=== PATIENT | female | born 1955 | race Caucasian/White ===

== ENCOUNTER 2016-07-20 10:05 | Emergency (ER) | payer OTHER ==
[~2016-07-20] VITALS: Ht 170.2 cm; Wt 167.9 kg
[~2016-07-20 10:05] MED LIST: AMLODIPINE BESYL5 MG PO; GLIMEPIRIDE4 MG PO; LEVEMIR FL100 UNIT/1 SC; LEVEMIR100 UNIT/2 SC; LISINOPRIL20 MG PO; LO-DOSE ASPIRIN81 M1 PO; METFORMIN HCL1000 MG PO; NOVOLOG 10100 UNITS/ SC; VERAPAMIL HCL120 MG PO; VITAMIN D1000 UNIT PO
[2016-07-20 11:11] LABS: HEMATOCRIT 44.4 % (36.0-46.0); MCHC 32.7 G/DL (30.0-36.0); MCV 88.8 FL (83-99); MEAN PLAT.VOLUME 10.9 uM^3 (9.5-12.4); PLATELET COUNT 168 K/uL (156-360); RBC DIS.WIDTH-CV 14.1 % (11.8-14.6); RBC DIS.WIDTH-SD 44.6 % (39-53); WHITE BLOOD COUNT 7.7 K/uL (4.1-10.2)
[2016-07-20 11:24] LABS: CHLORIDE 104 mEq/L (99-109); POTASSIUM 4.1 mEq/L (3.7-5.4); SODIUM 139 mEq/L (136-147)
[2016-07-20 11:26] LABS: GLUCOSE 256 mg/dL (70-99)
[2016-07-20 11:27] LABS: ANION GAP 10 MEQ/L (2-14)
[2016-07-20 11:28] LABS: TOTAL BILIRUBIN 0.8 mg/dL (0.0-1.0)
[2016-07-20 11:30] LABS: ALKALINE PHOSPHATASE 172 IU/L (3-129); GFR ESTIMATE (CALCULATED) > 59 mL/min/
[2016-07-20 11:31] LABS: UREA NITROGEN (BUN) 11 mg/dL (9-23)
[2016-07-20 13:06] LABS: ADD MIUA? YES; BILIRUBIN NEGATIVE; BLOOD TRACE; COLOR YELLOW ((YELLOW)); GLUCOSE (STRIP) 100; KETONES TRACE; LEUKOCYTES MODERATE; NITRITE POSITIVE; PH, URINE 5.5 (5-8); PROTEIN (STRIP) TRACE; UROBILINOGEN 0.2 MG/DL (0.2-1.0)
[2016-07-20 13:37] LABS: BACTERIA 2+; CASTS NONE SEEN /LPF; CRYSTALS NONE SEEN; EPITHELIAL CELLS 1+; MUCUS 1+; RED BLOOD CELLS 0-5 /HPF (0-5); UCUL ADDED? YES; WHITE BLOOD CELLS 15-20 /HPF (0-5)
[2016-07-20] MEDS ORDERED: ZOFRAN ODT4 MG PO (13:55)
[2016-07-20] MEDS ORDERED: IMODIUM A-D2 M2 PO (13:56)
[2016-07-20] MEDS ORDERED: FLAGYL500 MG PO (13:58)
[2016-07-20] MEDS ORDERED: CIPROFLOXACIN500 M1 PO (13:58)
[2016-07-20 14:19] VITALS: BP 168/70
== END 2016-07-20 14:43 | disposition home or self-care (01) ==
LOC: EME 10:05
DX: K52.9 Noninfective gastroenteritis and colitis, unspecified (principal); E86.0 Dehydration; E11.9 Type 2 diabetes mellitus without complications; I10 Essential (primary) hypertension; Z79.84 Long term (current) use of oral hypoglycemic drugs; Z79.4 Long term (current) use of insulin
CPT/HCPCS: 80053; 81003; 85027; 87077; 87086; 87186; 87493; 99281; 99284; J7030

== ENCOUNTER 2017-01-03 11:22 | Emergency (ER) | payer OTHER ==
[~2017-01-03] VITALS: Ht 170.2 cm; Wt 168.1 kg
[~2017-01-03 11:22] MED LIST changes: +CIPROFLOXACIN500 M1 PO; +FLAGYL500 MG PO; +IMODIUM A-D2 M2 PO; +ZOFRAN ODT4 MG PO
[2017-01-03] MEDS ORDERED: LEVEMIR100 UNIT/2 SC (13:12)
[2017-01-03] MEDS ORDERED: MOBIC15 MG PO (13:12)
[2017-01-03] MEDS ORDERED: LASIX40 MG PO (13:13)
[2017-01-03] MEDS ORDERED: AMARYL4 MG PO (13:13)
[2017-01-03 14:02] LABS: EOSINOPHIL (%) 0.2 % (0-5); HEMATOCRIT 48.6 % (36.0-46.0); IMMATURE GRANULOCYTE (%) 0.3 % (0.0-0.7); INSTRUMENT ABS NEUTROPHIL CT 6.7 K/uL; LYMPHOCYTE COUNT 1.3 K/uL (1.0-2.8); MCH 29.2 PG (29.0-34.0); MCHC 32.1 G/DL (30.0-36.0); MEAN PLAT.VOLUME 10.7 uM^3 (9.5-12.4); MONOCYTE COUNT 0.6 K/uL (0-0.8); NEUTROPHIL (%) 77.8 % (45-76); NEUTROPHIL COUNT 6.7 K/uL (1.8-6.4); PLATELET COUNT 172 K/uL (156-360); RBC DIS.WIDTH-CV 13.4 % (11.8-14.6); RBC DIS.WIDTH-SD 45.4 % (39-53); RED BLOOD COUNT 5.34 M/uL (3.80-5.20); WHITE BLOOD COUNT 8.6 K/uL (4.1-10.2)
[2017-01-03 14:10] LABS: CHLORIDE 99 mEq/L (99-109); POTASSIUM 3.9 mEq/L (3.7-5.4); SODIUM 138 mEq/L (136-147)
[2017-01-03 14:12] LABS: GLUCOSE 118 mg/dL (70-99)
[2017-01-03 14:13] LABS: ANION GAP 12 MEQ/L (2-14)
[2017-01-03 14:15] LABS: GFR ESTIMATE (CALCULATED) > 59 mL/min/
[2017-01-03 14:16] LABS: UREA NITROGEN (BUN) 14 mg/dL (9-23)
[2017-01-03] MEDS ORDERED: CLEOCIN300 MG PO (16:14)
[2017-01-03 16:20] VITALS: BP 157/79
== END 2017-01-03 16:22 | disposition home or self-care (01) ==
LOC: EME 11:22
PROVIDERS: Emergency Medicine
DX: L03.115 Cellulitis of right lower limb (principal); L97.519 Non-pressure chronic ulcer of other part of right foot with unspecified severity; E11.9 Type 2 diabetes mellitus without complications; Z79.4 Long term (current) use of insulin; I10 Essential (primary) hypertension
CPT/HCPCS: 73630; 80048; 85025; 99281; 99284

== ENCOUNTER 2017-01-05 12:14 | Inpatient (IN) | payer OTHER ==
[~2017-01-05] VITALS: Ht 170.2 cm; Wt 169.5 kg
[~2017-01-05 12:14] MED LIST changes: +AMARYL4 MG PO; +CLEOCIN300 MG PO; +LASIX40 MG PO; +MOBIC15 MG PO
[2017-01-05 13:09] LABS: MCH 28.9 PG (29.0-34.0); MCHC 31.8 G/DL (30.0-36.0); MCV 91.1 FL (83-99); MEAN PLAT.VOLUME 10.9 uM^3 (9.5-12.4); PLATELET COUNT 175 K/uL (156-360); RBC DIS.WIDTH-CV 13.4 % (11.8-14.6); RBC DIS.WIDTH-SD 45.1 % (39-53); RED BLOOD COUNT 4.94 M/uL (3.80-5.20); WHITE BLOOD COUNT 12.5 K/uL (4.1-10.2)
[2017-01-05 13:24] LABS: CHLORIDE 98 mEq/L (99-109); POTASSIUM 4.1 mEq/L (3.7-5.4); SODIUM 135 mEq/L (136-147)
[2017-01-05 13:27] LABS: ANION GAP 11 MEQ/L (2-14)
[2017-01-05 13:30] LABS: GFR ESTIMATE (CALCULATED) > 59 mL/min/; GLUCOSE 204 mg/dL (70-99); UREA NITROGEN (BUN) 17 mg/dL (9-23)
[2017-01-05 15:53] VITALS: BP 175/74
[2017-01-05 16:57] LABS: POINT-OF-CARE METER ID UU14149397
[2017-01-05 20:07] LABS: POINT-OF-CARE METER ID UU14188577; POINT-OF-CARE USER ID 609231305
[2017-01-05 23:48] VITALS: BP 172/80
[2017-01-06] VITALS: BP 155/82
[2017-01-06 00:18] LABS: POINT-OF-CARE METER ID UU14149397
[2017-01-06 00:22] LABS: ADD MIUA? YES; BILIRUBIN NEGATIVE; BLOOD LARGE; COLOR YELLOW ((YELLOW)); GLUCOSE (STRIP) >=500; KETONES NEGATIVE; LEUKOCYTES MODERATE; NITRITE NEGATIVE; PROTEIN (STRIP) 30; SPECIFIC GRAVITY 1.021 (1.000-1.030); UROBILINOGEN 0.2 MG/DL (0.2-1.0)
[2017-01-06 00:54] LABS: BACTERIA NONE SEEN /HPF; BUDDING YEAST 2+; EPITHELIAL CELLS RARE /HPF; MUCUS TRACE /LPF; RED BLOOD CELLS TNTC /HPF (0-5); UCUL ADDED? YES; WHITE BLOOD CELLS TNTC /HPF (0-5)
[2017-01-06 06:48] LABS: HEMATOCRIT 42.6 % (36.0-46.0); MCH 29.8 PG (29.0-34.0); MCHC 31.9 G/DL (30.0-36.0); MCV 93.2 FL (83-99); MEAN PLAT.VOLUME 11.1 uM^3 (9.5-12.4); PLATELET COUNT 195 K/uL (156-360); RBC DIS.WIDTH-CV 13.5 % (11.8-14.6); RBC DIS.WIDTH-SD 45.4 % (39-53); RED BLOOD COUNT 4.57 M/uL (3.80-5.20); WHITE BLOOD COUNT 8.8 K/uL (4.1-10.2)
[2017-01-06 08:21] LABS: ANION GAP 10 MEQ/L (2-14); CHLORIDE 100 MEQ/L (99-109); GFR ESTIMATE (CALCULATED) > 59 mL/min/; GLUCOSE 204 mg/dL (70-99); SAMPLE HEMOLYSIS CHECK 0; SAMPLE ICTERIC CHECK 0; SAMPLE LIPEMIA CHECK 0; SODIUM 138 MEQ/L (136-147); UREA NITROGEN (BUN) 20 mg/dL (9-23)
[2017-01-06 08:25] VITALS: BP 138/68
[2017-01-06 11:31] LABS: POINT-OF-CARE METER ID UU14149397
[2017-01-06 14:46] LABS: POINT-OF-CARE METER ID UU14188577
[2017-01-06 15:47] VITALS: BP 130/70
[2017-01-06 18:25] LABS: POINT-OF-CARE METER ID UU14188577
[2017-01-07 01:09] VITALS: BP 132/56
[2017-01-07 01:57] LABS: POINT-OF-CARE METER ID UU14188577; POINT-OF-CARE USER ID AHSUCEG
[2017-01-07 03:52] VITALS: BP 136/60
[2017-01-07 07:00] LABS: POINT-OF-CARE METER ID UU14188577; POINT-OF-CARE USER ID AHSUCEG
[2017-01-07 07:21] VITALS: BP 152/66
[2017-01-07 11:15] LABS: POINT-OF-CARE METER ID UU14149397
[2017-01-07 14:41] LABS: POINT-OF-CARE METER ID UU14149397
[2017-01-07 15:33] VITALS: BP 151/67
[2017-01-07 21:52] LABS: POINT-OF-CARE METER ID UU14188577
[2017-01-07 23:43] VITALS: BP 122/56
[2017-01-08 06:28] LABS: HEMATOCRIT 41.3 % (36.0-46.0); MCH 29.8 PG (29.0-34.0); MCV 93.2 FL (83-99); MEAN PLAT.VOLUME 10.8 uM^3 (9.5-12.4); PLATELET COUNT 203 K/uL (156-360); RBC DIS.WIDTH-CV 13.2 % (11.8-14.6); RBC DIS.WIDTH-SD 45.2 % (39-53); RED BLOOD COUNT 4.43 M/uL (3.80-5.20); WHITE BLOOD COUNT 6.5 K/uL (4.1-10.2)
[2017-01-08 06:39] LABS: POINT-OF-CARE METER ID UU14188577
[2017-01-08 07:00] LABS: ANION GAP 6 MEQ/L (2-14); CHLORIDE 103 MEQ/L (99-109); GFR ESTIMATE (CALCULATED) > 59 mL/min/; GLUCOSE 179 mg/dL (70-99); SAMPLE HEMOLYSIS CHECK 0; SAMPLE ICTERIC CHECK 0; SAMPLE LIPEMIA CHECK 0; SODIUM 137 MEQ/L (136-147); UREA NITROGEN (BUN) 14 mg/dL (9-23)
[2017-01-08 07:08] LABS: POTASSIUM 4.9 MEQ/L (3.7-5.4)
[2017-01-08 08:01] VITALS: BP 151/68
[2017-01-08 11:33] LABS: POINT-OF-CARE METER ID UU14149397
[2017-01-08] MEDS ORDERED: NORVASC5 MG PO (12:03)
[2017-01-08] MEDS ORDERED: NOVOLOG 10100 UNITS/ SC ×2 (12:04→12:05)
[2017-01-08 12:16] VITALS: BP 138/65
[2017-01-08 16:10] VITALS: BP 157/69
[2017-01-08 16:39] LABS: POINT-OF-CARE METER ID UU14149397
[2017-01-08 21:46] LABS: POINT-OF-CARE METER ID UU14149397
[2017-01-09 00:02] VITALS: BP 133/63
[2017-01-09 07:06] LABS: POINT-OF-CARE METER ID UU14149397
[2017-01-09 07:37] VITALS: BP 166/75
[2017-01-09 12:02] LABS: POINT-OF-CARE METER ID UU14149397
[2017-01-09 15:13] VITALS: BP 155/70
[2017-01-09 21:47] LABS: POINT-OF-CARE METER ID UU14149397
[2017-01-09 23:25] VITALS: BP 142/65
[2017-01-10 06:34] LABS: HEMATOCRIT 39.9 % (36.0-46.0); MCH 30.6 PG (29.0-34.0); MCHC 33.3 G/DL (30.0-36.0); MCV 91.9 FL (83-99); MEAN PLAT.VOLUME 10.8 uM^3 (9.5-12.4); PLATELET COUNT 184 K/uL (156-360); RBC DIS.WIDTH-CV 12.9 % (11.8-14.6); RBC DIS.WIDTH-SD 43.6 % (39-53); RED BLOOD COUNT 4.34 M/uL (3.80-5.20); WHITE BLOOD COUNT 5.9 K/uL (4.1-10.2)
[2017-01-10 06:54] LABS: ANION GAP 5 MEQ/L (2-14); CHLORIDE 101 MEQ/L (99-109); GFR ESTIMATE (CALCULATED) > 59 mL/min/; GLUCOSE 159 mg/dL (70-99); POTASSIUM 4.6 MEQ/L (3.7-5.4); SAMPLE HEMOLYSIS CHECK 0; SAMPLE ICTERIC CHECK 0; SAMPLE LIPEMIA CHECK 0; SODIUM 141 MEQ/L (136-147); UREA NITROGEN (BUN) 7 mg/dL (9-23)
[2017-01-10 11:49] LABS: POINT-OF-CARE METER ID UU14149397
[2017-01-10 16:51] LABS: POINT-OF-CARE METER ID UU14188577
[2017-01-10 17:46] VITALS: BP 175/76
[2017-01-10 21:40] LABS: POINT-OF-CARE METER ID UU14149397
[2017-01-10 22:33] VITALS: BP 172/78
[2017-01-11 00:40] VITALS: BP 142/65
[2017-01-11 06:35] LABS: POINT-OF-CARE METER ID UU14188577
[2017-01-11 07:32] LABS: ANION GAP 6 MEQ/L (2-14); CHLORIDE 100 MEQ/L (99-109); GFR ESTIMATE (CALCULATED) > 59 mL/min/; GLUCOSE 147 mg/dL (70-99); POTASSIUM 3.9 MEQ/L (3.7-5.4); SAMPLE HEMOLYSIS CHECK 0; SAMPLE ICTERIC CHECK 0; SAMPLE LIPEMIA CHECK 0; SODIUM 140 MEQ/L (136-147); UREA NITROGEN (BUN) 8 mg/dL (9-23)
[2017-01-11 07:35] VITALS: BP 177/78
[2017-01-11 11:22] VITALS: BP 118/59
[2017-01-11 11:58] LABS: POINT-OF-CARE METER ID UU14149397
[2017-01-11 13:48] LABS: POINT-OF-CARE METER ID UU14149397
[2017-01-11 16:22] LABS: POINT-OF-CARE METER ID UU13113675
[2017-01-11 17:15] VITALS: BP 139/63
[2017-01-11 19:40] VITALS: BP 148/67
[2017-01-11 22:52] VITALS: BP 122/57
[2017-01-12 04:47] VITALS: BP 131/62
[2017-01-12 06:47] LABS: POINT-OF-CARE METER ID UU14188577
[2017-01-12 06:53] LABS: HEMATOCRIT 43.5 % (36.0-46.0); MCH 29.5 PG (29.0-34.0); MCHC 31.5 G/DL (30.0-36.0); MCV 93.5 FL (83-99); MEAN PLAT.VOLUME 10.8 uM^3 (9.5-12.4); PLATELET COUNT 205 K/uL (156-360); RBC DIS.WIDTH-CV 13.6 % (11.8-14.6); RBC DIS.WIDTH-SD 46.5 % (39-53); RED BLOOD COUNT 4.65 M/uL (3.80-5.20); WHITE BLOOD COUNT 7.4 K/uL (4.1-10.2)
[2017-01-12 07:16] LABS: ANION GAP 9 MEQ/L (2-14); CHLORIDE 98 MEQ/L (99-109); GFR ESTIMATE (CALCULATED) > 59 mL/min/; GLUCOSE 240 mg/dL (70-99); POTASSIUM 5.1 MEQ/L (3.7-5.4); SAMPLE HEMOLYSIS CHECK 0; SAMPLE ICTERIC CHECK 0; SAMPLE LIPEMIA CHECK 0; SODIUM 139 MEQ/L (136-147); UREA NITROGEN (BUN) 12 mg/dL (9-23)
[2017-01-12 07:48] VITALS: BP 138/63
[2017-01-12 11:19] VITALS: BP 117/58
[2017-01-12 11:42] LABS: POINT-OF-CARE METER ID UU14188577
[2017-01-12 16:05] VITALS: BP 131/60
[2017-01-12 16:26] LABS: POINT-OF-CARE METER ID UU14188577
[2017-01-12 19:55] VITALS: BP 122/60
[2017-01-12 21:38] LABS: POINT-OF-CARE METER ID UU14149397
[2017-01-13 00:11] VITALS: BP 134/63
[2017-01-13 07:50] VITALS: BP 125/58
[2017-01-13 11:57] LABS: POINT-OF-CARE METER ID UU14149397
[2017-01-13 15:47] VITALS: BP 144/62
[2017-01-13 21:10] LABS: POINT-OF-CARE METER ID UU14149397
[2017-01-14 00:01] VITALS: BP 142/74
[2017-01-14 08:00] VITALS: BP 142/64
[2017-01-14 15:48] VITALS: BP 144/68
[2017-01-14 23:35] VITALS: BP 124/75
[2017-01-15 06:11] VITALS: BP 138/65
[2017-01-15 06:52] LABS: POINT-OF-CARE METER ID UU14188577
[2017-01-15 11:36] LABS: POINT-OF-CARE METER ID UU14188577
[2017-01-15 11:49] VITALS: BP 153/69
[2017-01-15 16:19] LABS: POINT-OF-CARE METER ID UU14188577
[2017-01-15 21:50] LABS: POINT-OF-CARE METER ID UU14188577
[2017-01-15 23:20] VITALS: BP 132/61
[2017-01-16 16:38] VITALS: BP 155/70
[2017-01-16 23:52] VITALS: BP 139/87
[2017-01-17 07:45] VITALS: BP 131/61
[2017-01-17 08:03] VITALS: BP 131/68
[2017-01-17] MEDS ORDERED: VERAPAMIL HCL120 MG PO (13:40)
[2017-01-17] MEDS ORDERED: TRAMADOL HCL50 MG PO (13:40)
[2017-01-17] MEDS ORDERED: OXYCODONE HCL5 MG PO (13:40)
[2017-01-17] MEDS ORDERED: AMOX TR-K CLV1 EAC4 PO (13:40)
== END 2017-01-17 15:37 | disposition home health service (06) | DRG 475 ==
LOC: EME 12:14 → EDOF 14:34 → 3EAST 14:34
PROVIDERS: Emergency Medicine; Hospitalist; Internal Medicine
PROC: 0LBV0ZZ Excision of Right Foot Tendon, Open Approach (ICD-10-PCS; principal; 2017-01-05)
PROC: 0Y6M0ZF Detachment at Right Foot, Partial 5th Ray, Open Approach (ICD-10-PCS; 2017-01-11)
DX: M86.9 Osteomyelitis, unspecified (principal); L03.115 Cellulitis of right lower limb; E11.52 Type 2 diabetes mellitus with diabetic peripheral angiopathy with gangrene; Z68.44 Body mass index [BMI] 60.0-69.9, adult; N30.00 Acute cystitis without hematuria; E11.621 Type 2 diabetes mellitus with foot ulcer; E11.65 Type 2 diabetes mellitus with hyperglycemia; E87.2 Acidosis; E78.5 Hyperlipidemia, unspecified; E66.01 Morbid (severe) obesity due to excess calories; E11.628 Type 2 diabetes mellitus with other skin complications; L02.611 Cutaneous abscess of right foot; B95.5 Unspecified streptococcus as the cause of diseases classified elsewhere; I10 Essential (primary) hypertension; Z90.49 Acquired absence of other specified parts of digestive tract; Z79.4 Long term (current) use of insulin
CPT/HCPCS: 71010; 73630; 73720; 80048; 81003; 82948; 83605; 85025; 85027; 87040; 87070; 87075; 87076; 87086; 87205; 88305; 94799; 97530 GO; 97530 GP; 99281; 99284; 99285; A6260; J0360; J1170; J1644; J1815; J2250; J2405; J2543; J3010; J3370; J7030; J7050